=== PATIENT | male | born 1965 | race Two or more races ===

== ENCOUNTER 2018-10-03 12:10 | Emergency (ER) | payer BC ==
[2018-10-03 12:19] VITALS: BP 119/75; PULSE 72; TEMP 98.1; BMI 27.3
[2018-10-03] MEDS ORDERED: KETOROLAC TROMETHAMINE 60 MG/2 ML VIAL IM ONE (12:53)
[2018-10-03] MEDS ORDERED: KETOROLAC TROMETHAMINE 60 MG/2 ML VIAL ONE (12:57)
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
== END 2018-10-03 13:50 | disposition home or self-care (01) ==
LOC: JERFT 12:10
PROC: 3E0233Z Introduction of Anti-inflammatory into Muscle, Percutaneous Approach (ICD-10-PCS; principal; 2018-10-03)
DX: M25.572 Pain in left ankle and joints of left foot (principal); V03.90XD Pedestrian on foot injured in collision with car, pick-up truck or van, unspecified whether traffic or nontraffic accident, subsequent encounter
CPT/HCPCS: 73630-TC-LT; 99281-25